=== PATIENT | female | born 1975 | race African-American/Black ===

== ENCOUNTER 2019-05-27 04:57 | Emergency (ER) | payer BC, OTHER ==
[~2019-05-27] VITALS: Ht 172.7 cm; Wt 81.6 kg
[2019-05-27 05:12] VITALS: BP 146/77
[2019-05-27 05:26] LABS: BILIRUBIN,URINE NEGATIVE (NEG); CLARITY,URINE CLOUDY; COLOR,URINE YELLOW; NITRITE,URINE NEGATIVE (NEG); PH,URINE 6.5; PROTEIN,URINE 100 mg/dL (NEG-TRACE); UROBILINOGEN,URINE 0.2 mg/dL (0.2 mg/dL)
[2019-05-27 05:41] LABS: BACTERIA,URINE FEW /HPF (0-FEW); RBC,URINE >40 /HPF (0-2); WBC,URINE >40 /HPF (0-4)
[2019-05-27 05:42] LABS: SQUAMOUS EPITHELIAL CELL,UR FEW /LPF
[2019-05-27] MEDS ORDERED: cefTRIAXone IV Push 1 GM VIAL. IVP ONE (05:55)
[2019-05-27] MEDS ORDERED: HYDR5SUS PO (06:10)
[2019-05-27] MEDS ORDERED: SULF1TAB24 PO (06:10)
--- NOTE | 2019-05-27 06:10 | PHYS DOC ---
Past Medical History Past Medical History: No Pertinent History Alcohol Use: None Drug Use: None Adult General Chief Complaint Chief Complaint: BLOOD IN URINE HPI HPI Patient is a 44 year old female who presents with complaining of cough and congestion and bloody urine. Patient states she has had nasal congestion and cough and sinus pain for several days with nonproductive cough without fever and chills. Patient also complaining of urinary frequency and dysuria for the last couple days and bloody urine tonight. Patient denies fever and sick contact. Review of Systems Review of Systems Constitutional: Denies fever or chills [] Eyes: Denies change in visual acuity, redness, or eye pain [] HENT: Reports nasal congestion Respiratory: Reports cough Cardiovascular: No additional information not addressed in HPI [] GI: Denies abdominal pain, nausea, vomiting, bloody stools or diarrhea [] : Reports dysuria and hematuria Musculoskeletal: Denies back pain or joint pain [] Integument: Denies rash or skin lesions [] Neurologic: Denies headache, focal weakness or sensory changes [] Endocrine: Denies polyuria or polydipsia [] All other systems were reviewed and found to be within normal limits, except as documented in this note. Current Medications Current Medications Current Medications Medications (Trade) Dose Ordered Sig/Richard Start Time Stop Time Status Last Admin Dose Admin Ceftriaxone Sodium (Rocephin Im) 1 gm 1X ONCE 05/27/19 06:15 05/27/19 06:16 Ceftriaxone Sodium (Rocephin) 1 gm STK-MED ONCE 05/27/19 05:55 05/27/19 05:55 DC Lidocaine HCl (Xylocaine-Mpf 1% 2ml Vial) 2 ml 1X ONCE 05/27/19 06:15 05/27/19 06:16 Allergies Allergies Allergies Coded Allergies Type Severity Reaction Last Updated Verified codeine Allergy Intermediate 05/27/19 Yes Physical Exam Physical Exam Constitutional: Well developed, well nourished, mild distress, non-toxic appearance. [] HENT: Normocephalic, atraumatic, nasal congestion with sinus tenderness. Eyes: PERRLA, EOMI, conjunctiva normal, no discharge. [] Neck: Normal range of motion, no tenderness, supple, no stridor. [] Cardiovascular:Heart rate regular rhythm, no murmur [] Lungs & Thorax: Bilateral breath sounds clear to auscultation [] Abdomen: Bowel sounds normal, soft, no tenderness, no masses, no pulsatile masses. [] Skin: Warm, dry, no erythema, no rash. [] Back: No tenderness, no CVA tenderness. [] Extremities: No tenderness, no cyanosis, no clubbing, ROM intact, no edema. [] Neurologic: Alert and oriented X 3, no focal deficits noted. [] Psychologic: Affect normal, judgement normal, mood normal. [] Current Patient Data Vital Signs Vital Signs Date Time Temp Pulse Resp B/P (MAP) Pulse Ox O2 Delivery O2 Flow Rate FiO2 05/27/19 05:12 98.6 98 14 146/77 (100) 100 Room Air 98.6 Lab Values Laboratory Tests Test 05/27/19 05:10 05/27/19 05:13 Urine Collection Type Unknown Urine Color Yellow Urine Clarity Cloudy Urine pH 6.5 Urine Specific [place] 1.015 Urine Protein 100 mg/dL (NEG-TRACE) Urine Glucose (UA) Negative mg/dL (NEG) Urine Ketones (Stick) Negative mg/dL (NEG) Urine Blood Large (NEG) Urine Nitrite Negative (NEG) Urine Bilirubin Negative (NEG) Urine Urobilinogen Dipstick 0.2 mg/dL (0.2 mg/dL) Urine Leukocyte Esterase Large (NEG) Urine RBC >40 /HPF (0-2) Urine WBC >40 /HPF (0-4) Urine Squamous Epithelial Cells Few /LPF Urine Bacteria Few /HPF (0-FEW) POC Urine HCG, Qualitative Hcg negative (Negative) EKG EKG [] Radiology/Procedures Radiology/Procedures [] Course & Med Decision Making Course & Med Decision Making Pertinent Labs reviewed. (See chart for details) discharge: I've spoken with the patient and/or caregivers. I've explained the patient's condition, diagnosis and treatment plan based on information available to me at this time. I've answered the patient's and/or caregivers questions and addressed any concerns. The patient and/or caregivers have a good understanding the patient's diagnosis, condition and treatment plan as can be expected at this point. Vital signs have been stabilized. The patient's condition is stable for discharge from the emergency department. The patient will pursue further outpatient evaluation with her primary care provider or other designated consulting physician as outlined in the discharge instructions. Patient and/or caregivers are agreeable to this plan of care and follow-up instructions have been explained in detail. The patient and/or caregivers have received these instructions in written format and expressed understanding of these discharge instructions. The patient and her caregivers are aware that if any significant change in condition or worsening of symptoms should prompt him to immediately return to this of the closest emergency department. If an emergent department is not readily available I would encourage him to call 911. Rosalva Disclaimer Dragon Disclaimer This electronic medical record was generated, in whole or in part, using a voice recognition dictation system. Departure Departure Impression: Primary Impression: Hemorrhagic cystitis Additional Impression: Acute sinusitis Disposition: HOME, SELF-CARE (at 0608) Condition: IMPROVED Referrals: NO PCP (PCP) Patient Instructions: Sinusitis, Urinary Tract Infection Additional Instructions: Drink plenty of liquids Follow-up with your primary care physician in 3-5 days Return to ER if not getting better Scripts Hydrocodone/Chlorphen Polis (HYDROCODONE-CHLORPHENIRAM SUSP) 5 Ml Ania.er.12h 5 ML PO PRN Q12HR PRN for COUGH, #60 ML 0 Refills Prov: MEI LIU MD 05/27/19 Sulfamethoxazole/Trimethoprim (BACTRIM DS TABLET) 1 Each Tablet 1 TAB PO BID for infection, #14 TAB Prov: MEI LIU MD 05/27/19 Problem Qualifiers Additional Impression: Acute sinusitis Sinusitis location: maxillary Recurrence: non-recurrent Qualified Codes: J01.00 - Acute maxillary sinusitis, unspecified MEI LIU MD May 27, 2019 06:10
[2019-05-27] MEDS ORDERED: LIDOCAINE 1% PF 2 ML VIAL. INJ ONE (06:15)
[2019-05-27] MEDS ORDERED: cefTRIAXone IM 1 GM VIAL IM ONE (06:15)
== END 2019-05-27 06:23 | disposition home or self-care (01) ==
LOC: ER 04:57
DX: N30.91 Cystitis, unspecified with hematuria (principal); J01.00 Acute maxillary sinusitis, unspecified; Z88.5 Allergy status to narcotic agent
CPT/HCPCS: 81001; 81025; 87086; 87186; 96372; 99284; J0696

== ENCOUNTER → 2019-09-23 | Outpatient (CLI) | payer BC ==
[~2019-09-23] MED LIST: HYDR5SUS PO; SULF1TAB24 PO
--- NOTE | 2019-09-23 16:18 | RAD ---
Examination: Ultrasound pelvis HISTORY: History of menorrhagia. COMPARISON: None available FINDINGS: The uterus measures 11.2 x 8.1 x 5.5 cm. The endometrium is 2.7 mm in thickness. Right ovary measures 2.3 x 1.8 x 1.3 cm. The left ovary measures 2.6 x 1.8 x 1.8 cm. Blood flow identified in the right and left ovaries. There is a 2.5 cm hypoechogenicity identified in the posterior uterus probably a fibroid. IMPRESSION: 1. 2.5 cm hypoechogenicity identified in the posterior uterus probably a fibroid. Electronically signed by: Devin Gabriel MD (09/23/2019 4:15 PM) [id number]
== END | disposition home or self-care (01) ==
LOC: US 15:15
PROVIDERS: ATTEND Obstetrics & Gynecology
DX: N92.0 Excessive and frequent menstruation with regular cycle (principal); N94.6 Dysmenorrhea, unspecified
CPT/HCPCS: 76856

== ENCOUNTER 2019-10-07 08:58 | Day surgery (SDC) | payer BC ==
[~2019-10-07] VITALS: Ht 175.3 cm; Wt 83.9 kg
[~2019-10-07 08:58] MED LIST changes: +IV RINGERS,LACTATED 1000ML 1,000 ML IV SCH; +ONDANSETRON PF 4 MG/2 ML VIAL. IV PRN; +PREN-2 PO; +PROCHLORPERAZINE 10 MG/2 ML VIAL. IV PRN; +fentaNYL PF VIAL 100 MCG/2 ML VIAL IV PRN
[2019-10-07] MEDS ORDERED: FAMOTIDINE 20 MG/2 ML VIAL ONE (10:45)
[2019-10-07] MEDS ORDERED: ONDANSETRON PF 4 MG/2 ML VIAL. ONE (10:45)
[2019-10-07] MEDS ORDERED: LIDOCAINE 2% PF 5 ML VIAL. ONE (10:45)
[2019-10-07] MEDS ORDERED: PROPOFOL 20 ML IV ONE (10:45)
[2019-10-07] MEDS ORDERED: MIDAZOLAM HCL/PF 2 MG/2 ML VIAL. ONE (11:35)
[2019-10-07] MEDS ORDERED: DEXAMETHASONE SOD PHOS 4 MG/ML VIAL ONE (11:35)
[2019-10-07] MEDS ORDERED: fentaNYL PF VIAL 100 MCG/2 ML VIAL ONE (11:35)
[2019-10-07] MEDS ORDERED: SEVOFLURANE 16 TO 30 MINUTES. IH ONE (12:13)
--- NOTE | 2019-10-07 12:19 | PDOC ---
BRIEF OPERATIVE NOTE Date: Oct 07, 2019 Pre-Op Diagnosis Menorrhagia Post-Op Diagnosis SAme Procedure Performed Endometrial Ablation Surgeon Dr. Verma Anesthesia Type: General Blood Loss 5 ml Specimens Obtained none Findings nml size uterus Complications none Operative Note see dictation BLACK VERMA Jr, MD Oct 07, 2019 12:19
--- NOTE | 2019-10-07 12:21 | DISCH ---
DISCHARGE INSTRUCTIONS Condition on Discharge Condition on Discharge: Stable Activity After Discharge Activity Instructions for Disc: Activity as tolerated Lifting Instructions after Dis: No heavy lifting Driving Instructions after Dis: Do not drive today Diet after Discharge Diet after Discharge: Regular Contacting the DRMarkel after DC Call your doctor for: Concerns you may have Follow-Up Follow up with: Dr. Verma in 1 week. BLACK VERMA Jr, MD Oct 07, 2019 12:21
--- NOTE | 2019-10-07 12:39 | OP ---
DATE OF SURGERY: 10/07/2019 PREOPERATIVE DIAGNOSIS: Menorrhagia. POSTOPERATIVE DIAGNOSIS: Menorrhagia. PROCEDURE: Endometrial ablation via the NovaSure device. SURGEON: Odell Verma MD ANESTHESIA: GETA. ESTIMATED BLOOD LOSS: 5 mL. COMPLICATIONS: None. FINDINGS: Normal size uterus. DESCRIPTION OF PROCEDURE: The patient was taken to surgery suite, placed in dorsal lithotomy position. She was prepped with Betadine solution and draped in sterile fashion. After adequate anesthesia, weighted speculum and curved [place] placed vaginally. Anterior lip of the cervix was grasped with single tooth tenaculum. Cervix dilated up to size 7 Hegar dilators. The NovaSure device was placed. Once activated, took 90 seconds for completion of the ablation. Once the ablation was completed, the NovaSure device was then removed. Single tooth tenaculum and weighted speculum were also removed. The patient tolerated the procedure well and was taken to recovery room in stable condition. Sponge and needle count correct x 3. ODELL VERMA MD DR: CHAI/selma JOB#: [id number] / [id number]
[2019-10-07] MEDS: fentaNYL PF VIAL 100 MCG/2 ML VIAL IV PRN ×2 (12:42→13:02)
[2019-10-07] MEDS ORDERED: OXYC1TAB15 PO (12:57)
[2019-10-07] MEDS ORDERED: oxyCODONE/APAP 5/325 1 TAB TABLET PO ONE (13:00)
[2019-10-07 13:15] VITALS: BP 122/76
== END 2019-10-07 13:40 | disposition home or self-care (01) ==
LOC: SURG 08:58
PROVIDERS: ATTEND Obstetrics & Gynecology
DX: N92.0 Excessive and frequent menstruation with regular cycle (principal); D25.9 Leiomyoma of uterus, unspecified; D50.9 Iron deficiency anemia, unspecified; Z79.899 Other long term (current) drug therapy; Z88.6 Allergy status to analgesic agent; Z98.890 Other specified postprocedural states; Z88.8 Allergy status to other drugs, medicaments and biological substances
CPT/HCPCS: 81025; A7015; J0690; J1100; J2001; J2250; J2405; J2704; J3010; J3490

== ENCOUNTER 2019-10-10 11:29 | Emergency (ER) | payer BC ==
[~2019-10-10] VITALS: Ht 175.3 cm; Wt 83.9 kg
[~2019-10-10 11:29] MED LIST changes: -IV RINGERS,LACTATED 1000ML 1,000 ML IV SCH; -ONDANSETRON PF 4 MG/2 ML VIAL. IV PRN; +OXYC1TAB15 PO; -PROCHLORPERAZINE 10 MG/2 ML VIAL. IV PRN; -fentaNYL PF VIAL 100 MCG/2 ML VIAL IV PRN
[2019-10-10] MEDS ORDERED: ONDANSETRON PF 4 MG/2 ML VIAL. IVP ONE (12:00)
[2019-10-10 12:10] VITALS: BP 137/95
[2019-10-10 12:10] LABS: BASO % 0 % (0-3); EOS % 0 % (0-3); HEMATOCRIT 38.1 % (36.0-47.0); HEMOGLOBIN 12.9 g/dL (12.0-15.5); LYMPH # 1.3 x10^3/uL (1.0-4.8); LYMPH % 16 % (24-48); MEAN CORPUSCULAR HEMOGLOBIN 29 pg (25-35); MEAN CORPUSCULAR HGB CONC 34 g/dL (31-37); MEAN CORPUSCULAR VOLUME 85 fL (79-100); MONO # 0.5 x10^3/uL (0.0-1.1); MONO % 6 % (0-9); NEUT # 6.5 x10^3/uL (1.8-7.7); NEUT % 78 % (31-73); PLATELET COUNT 221 x10^3/uL (140-400); WHITE BLOOD COUNT 8.4 x10^3/uL (4.0-11.0)
--- NOTE | 2019-10-10 12:10 | PHYS DOC ---
Past Medical History Past Medical History: No Pertinent History Past Surgical History: Additional Past Surgical Histo: uterine ablation Alcohol Use: None Drug Use: None Adult General Chief Complaint Chief Complaint: NAUSEA/VOMITING/DIARRHA HPI HPI Patient is a 44 year old female with a history of vertigo presents with nausea vomiting diarrhea and dizziness. Onset was this morning. Associated symptoms or shortness of breath, shaking. Patient denies fevers, chills, chest pain, hematem esis, melena, hematochezia. Patient states she has had multiple episodes of this over the past few years. Has been seen and worked up by neurology told symptoms related to her vertigo. She denies changes in vision, loss of consciousness, headache. Review of Systems Review of Systems Constitutional: Denies fever or chills. Reports tremors. Eyes: Denies redness or eye pain. Denies changes in vision. HENT: Denies nasal congestion or sore throat Respiratory: Reports shortness of breath. Denies cough. Cardiovascular: Denies chest pain or palpitations GI: Reports nausea, vomiting, diarrhea. Denies abdominal pain. : Denies dysuria or hematuria Musculoskeletal: Denies back pain or joint pain Integument: Denies rash or skin lesions Neurologic: Denies headache, focal weakness or sensory changes Complete systems were reviewed and found to be within normal limits, except as documented in this note. Current Medications Current Medications Current Medications Medications (Trade) Dose Ordered Sig/Richard Start Time Stop Time Status Last Admin Dose Admin Lorazepam (Ativan Inj) 0.5 mg 1X ONCE 10/10/19 12:00 10/10/19 12:01 DC 10/10/19 12:07 0.5 MG Magnesium Chloride (Mag Delay) 64 mg 1X ONCE 10/10/19 12:45 10/10/19 12:46 DC 10/10/19 12:52 64 MG Ondansetron HCl (Zofran) 4 mg 1X ONCE 10/10/19 12:00 10/10/19 12:01 DC 10/10/19 12:07 4 MG Potassium Chloride (Klor-Con) 40 meq 1X ONCE 10/10/19 12:45 10/10/19 12:46 DC 10/10/19 12:52 40 MEQ Allergies Allergies Allergies Coded Allergies Type Severity Reaction Last Updated Verified codeine Allergy Intermediate 05/27/19 Yes morphine Allergy Unknown 10/10/19 Yes Physical Exam Physical Exam Constitutional: Well developed, well nourished, mild distress, non-toxic appearance HENT: Normocephalic, atraumatic, oropharynx moist Eyes: PERRL, EOMI, conjunctiva normal, no discharge Neck: Normal range of motion, no tenderness, supple Cardiovascular: Heart rate normal, regular rhythm Lungs & Thorax: Bilateral breath sounds clear to auscultation, no wheezing Abdomen: Soft, no tenderness Skin: Warm, dry, no erythema, no rash Back: No tenderness, no CVA tenderness Extremities: No tenderness, ROM intact, no edema Neurologic: Alert and oriented X 3, normal motor function, normal sensory function, no focal deficits noted Psychologic: Affect normal, judgement normal, mood is anxious. Current Patient Data Vital Signs Vital Signs Date Time Temp Pulse Resp B/P (MAP) Pulse Ox O2 Delivery O2 Flow Rate FiO2 10/10/19 12:10 84 18 137/95 (109) 98 Room Air 10/10/19 11:35 98.1 98.1 Lab Values Laboratory Tests Test 10/10/19 11:44 10/10/19 11:50 10/10/19 11:56 POC Urine HCG, Qualitative Hcg negative (Negative) White Blood Count 8.4 x10^3/uL (4.0-11.0) Red Blood Count 4.50 x10^6/uL (3.50-5.40) Hemoglobin 12.9 g/dL (12.0-15.5) Hematocrit 38.1 % (36.0-47.0) Mean Corpuscular Volume 85 fL (79-100) Mean Corpuscular Hemoglobin 29 pg (25-35) Mean Corpuscular Hemoglobin Concent 34 g/dL (31-37) Red Cell Distribution Width 19.0 % (11.5-14.5) H Platelet Count 221 x10^3/uL (140-400) Neutrophils (%) (Auto) 78 % (31-73) H Lymphocytes (%) (Auto) 16 % (24-48) L Monocytes (%) (Auto) 6 % (0-9) Eosinophils (%) (Auto) 0 % (0-3) Basophils (%) (Auto) 0 % (0-3) Neutrophils # (Auto) 6.5 x10^3/uL (1.8-7.7) Lymphocytes # (Auto) 1.3 x10^3/uL (1.0-4.8) Monocytes # (Auto) 0.5 x10^3/uL (0.0-1.1) Eosinophils # (Auto) 0.0 x10^3/uL (0.0-0.7) Basophils # (Auto) 0.0 x10^3/uL (0.0-0.2) Sodium Level 142 mmol/L (136-145) Potassium Level 3.2 mmol/L (3.5-5.1) L Chloride Level 106 mmol/L (98-107) Carbon Dioxide Level 25 mmol/L (21-32) Anion Gap 11 (6-14) Blood Urea Nitrogen 11 mg/dL (7-20) Creatinine 0.7 mg/dL (0.6-1.0) Estimated GFR (Cockcroft-Gault) 109.5 BUN/Creatinine Ratio 16 (6-20) Glucose Level 119 mg/dL (70-99) H Calcium Level 9.2 mg/dL (8.5-10.1) Magnesium Level 1.5 mg/dL (1.8-2.4) L Total Bilirubin 0.2 mg/dL (0.2-1.0) Aspartate Amino Transferase (AST) 26 U/L (15-37) Alanine Aminotransferase (ALT) 41 U/L (14-59) Alkaline Phosphatase 75 U/L (46-116) Creatine Kinase 68 U/L (26-192) Creatine Kinase MB (Mass) 0.5 ng/mL (0.0-3.6) Creatine Kinase MB Relative Index % (0-4) Troponin I Quantitative < 0.017 ng/mL (0.000-0.055) Total Protein 7.9 g/dL (6.4-8.2) Albumin 4.0 g/dL (3.4-5.0) Albumin/Globulin Ratio 1.0 (1.0-1.7) Urine Collection Type Unknown Urine Color Yellow Urine Clarity Clear Urine pH 6.0 Urine Specific [place] 1.020 Urine Protein Negative mg/dL (NEG-TRACE) Urine Glucose (UA) Negative mg/dL (NEG) Urine Ketones (Stick) Negative mg/dL (NEG) Urine Blood Small (NEG) Urine Nitrite Negative (NEG) Urine Bilirubin Negative (NEG) Urine Urobilinogen Dipstick 0.2 mg/dL (0.2 mg/dL) Urine Leukocyte Esterase Negative (NEG) Urine RBC 3-5 /HPF (0-2) Urine WBC Occ /HPF (0-4) Urine Squamous Epithelial Cells Mod /LPF Urine Bacteria Few /HPF (0-FEW) Urine Mucus Marked /LPF Laboratory Tests 10/10/19 11:50 Laboratory Tests 10/10/19 11:50 EKG EKG @1144. NSR at 61bpm, No STEMI. No ST-T wave abnormalities. Repeat @1225. NSR at 68bpm. No STEMI. Radiology/Procedures Radiology/Procedures PROCEDURE: CHEST PA & LATERAL CHEST PA LATERAL INDICATION: Dizziness. COMPARISON STUDY: None. FINDINGS: Lungs: Normal lung volume. No pulmonary mass or consolidation. The tracheobronchial tree and hilar structures are normal. Pleura: No pleural effusion or pneumothorax. Heart and Mediastinum: The cardiomediastinal silhouette is normal. The great vessels of the thorax are normal. Bones and Soft Tissues: The bones and soft tissues are within normal limits. IMPRESSION: No acute cardiopulmonary process. Electronically signed by: Leroy Tavares MD (10/10/2019 12:18 PM) [facility] Course & Med Decision Making Course & Med Decision Making Pertinent Labs and Imaging studies reviewed. (See chart for details) She with history of vertigo presents to the ED with nausea, vomiting, diarrhea, and dizziness since this morning. I discussed remembered. 1250: Patient resting comfortably after medication. Shaking and dizziness resolved. Repeat neurological exam was normal. Extensive discussion with patient regarding the likely etiology of vertigo. Will send home with AntiVert and Valium for vertigo episodes and anxiety component. Patient was thankful and agreeable with plan. Dragon Disclaimer Dragon Disclaimer This electronic medical record was generated, in whole or in part, using a voice recognition dictation system. Departure Departure Impression: Primary Impression: Dizziness Additional Impressions: Nausea Anxiety Disposition: 01 HOME, SELF-CARE Condition: STABLE Referrals: DANIELLA KELLY MD (PCP) RONAK DANIELS MD Patient Instructions: Anxiety and Panic Attacks, [id number], Dizziness, Icsc-[id number], Nausea, Adult, [id number], Vertigo, Lbqg-[id number] Scripts Meclizine Hcl (MECLIZINE HCL) 25 Mg Tablet 1 TAB PO Q8HRS PRN for dizziness, #20 TAB Prov: ANNY SORIANO DO 10/10/19 Ondansetron (ONDANSETRON ODT) 4 Mg Tab.rapdis 1 TAB PO PRN Q6-8HRS PRN for NAUSEA, #16 TAB Prov: ANNY SORIANO DO 10/10/19 Diazepam (VALIUM) 2 Mg Tablet 2 MG PO TID PRN for DIZZINESS, #10 TAB Prov: ANNY SORIANO DO 10/10/19 Problem Qualifiers ANNY SORIANO DO Oct 10, 2019 12:10
[2019-10-10 12:19] LABS: CALCIUM 9.2 mg/dL (8.5-10.1); CREATININE 0.7 mg/dL (0.6-1.0); GFR 109.5; POTASSIUM 3.2 mmol/L (3.5-5.1)
--- NOTE | 2019-10-10 12:20 | RAD ---
CHEST PA LATERAL INDICATION: Dizziness. COMPARISON STUDY: None. FINDINGS: Lungs: Normal lung volume. No pulmonary mass or consolidation. The tracheobronchial tree and hilar structures are normal. Pleura: No pleural effusion or pneumothorax. Heart and Mediastinum: The cardiomediastinal silhouette is normal. The great vessels of the thorax are normal. Bones and Soft Tissues: The bones and soft tissues are within normal limits. IMPRESSION: No acute cardiopulmonary process. Electronically signed by: Leroy Tavares MD (10/10/2019 12:18 PM) [facility]
[2019-10-10 12:26] LABS: MAGNESIUM 1.5 mg/dL (1.8-2.4); TOTAL BILIRUBIN 0.2 mg/dL (0.2-1.0); TOTAL PROTEIN 7.9 g/dL (6.4-8.2)
[2019-10-10] MEDS ORDERED: DIAZ2TAB PO (12:31)
[2019-10-10] MEDS ORDERED: ONDA4TAB12 PO (12:33)
[2019-10-10 12:34] LABS: CREATINE KINASE 68 U/L (26-192)
[2019-10-10] MEDS ORDERED: POTASSIUM CHLORIDE 20 MEQ TABLET.ER. PO ONE (12:45)
[2019-10-10] MEDS ORDERED: MAGNESIUM CHLORIDE ER 64 MG TABLET.ER PO ONE (12:45)
[2019-10-10] MEDS ORDERED: MECL-75 PO (13:02)
[2019-10-10 13:05] LABS: BILIRUBIN,URINE NEGATIVE (NEG); CLARITY,URINE CLEAR; COLOR,URINE YELLOW; NITRITE,URINE NEGATIVE (NEG); PROTEIN,URINE NEGATIVE (NEG-TRACE); UROBILINOGEN,URINE 0.2 mg/dL (0.2 mg/dL)
[2019-10-10 13:12] LABS: BACTERIA,URINE FEW /HPF (0-FEW); SQUAMOUS EPITHELIAL CELL,UR MOD /LPF; WBC,URINE OCC /HPF (0-4)
--- NOTE | 2019-10-11 08:21 | EKG ---
[facility] [address] [place] [address] Test Date: 2019-10-10 Test Time: 12:25:15 Pat Name: AMOR COUCH Department: Room: Gender: F Sander [employer]enc[employer]: : 1975 Requested By: ANNY SORIANO Order Number: [id number] Reading MD: Measurements Intervals [place] Rate: 68 P: 0 NE: 144 QRS: -4 QRSD: 76 T: 28 QT: 420 QTc: 451 Interpretive Statements SINUS RHYTHM LEFTWARD AXIS OTHERWISE NORMAL ECG No previous ECG available for comparison
== END 2019-10-10 13:40 | disposition home or self-care (01) ==
LOC: ER 11:29
DX: R42 Dizziness and giddiness (principal); R11.2 Nausea with vomiting, unspecified; R19.7 Diarrhea, unspecified; R06.02 Shortness of breath; F41.9 Anxiety disorder, unspecified; Z98.890 Other specified postprocedural states; Z88.5 Allergy status to narcotic agent; Z88.6 Allergy status to analgesic agent
CPT/HCPCS: 36415; 71046; 80053; 81001; 81025; 82553; 83735; 84484; 85025; 93005; 96374; 96375; 99285; J2060; J2405